=== PATIENT | female | born 1985 | race Two or more races ===

== ENCOUNTER 2022-10-13 10:11 | Emergency (ER) | payer OTHER ==
[~2022-10-13] VITALS: Ht 154.9 cm; Wt 140.0 kg
[2022-10-13 10:15] VITALS: BP 146/75
[2022-10-13 10:52] LABS: COVID AG,FIA SOURCE NASAL SWAB
[2022-10-13] MEDS ORDERED: PSEUDOEPHEDRINE HCL 30 MG TABLET PO ONE (11:15)
[2022-10-13] MEDS ORDERED: ACETAMINOPHEN 500 MG TABLET PO ONE (11:15)
[2022-10-13 11:18] LABS: INFLUENZA TYPE A NEGATIVE FOR TYPE A (NEGATIVE); INFLUENZA TYPE B POSITIVE FOR TYPE B (NEGATIVE)
[2022-10-13] MEDS ORDERED: IBUP-1554 PO (11:45)
[2022-10-13] MEDS ORDERED: GUAIFDM PO (11:45)
[2022-10-13] MEDS ORDERED: HYDR-4723 PO (11:45)
[2022-10-13] MEDS ORDERED: PSEU-191 PO (11:45)
== END 2022-10-13 12:04 | disposition still patient (30) ==
LOC: EMS 10:14
DX: J40 Bronchitis, not specified as acute or chronic (principal); J06.9 Acute upper respiratory infection, unspecified; J10.1 Influenza due to other identified influenza virus with other respiratory manifestations; Z20.822 Contact with and (suspected) exposure to COVID-19
CPT/HCPCS: 87804; 99283

== ENCOUNTER 2023-02-20 17:48 | Emergency (ER) | payer OTHER ==
[~2023-02-20] VITALS: Ht 154.9 cm; Wt 59.1 kg
[~2023-02-20 17:48] MED LIST: GUAIFDM PO; HYDR-4723 PO; IBUP-1554 PO; PSEU-191 PO
[2023-02-20] MEDS ORDERED: METOCLOPRAMIDE HCL 10 MG TABLET PO ONE (19:00)
[2023-02-20 19:09] LABS: BASOPHILS % (AUTO) 0.4 % (0.0-2.0); HEMATOCRIT 36.7 % (36-46); LYMPHOCYTES # (AUTO) 2.5 K/uL (1.0-4.8); MEAN CORPUSCULAR HEMOGLOBIN 31.9 pg (26.0-34.0); MEAN CORPUSCULAR HGB CONC 32.7 G/dL (31.0-37.0); MEAN CORPUSCULAR VOLUME 98 fL (80-100); MONOCYTES # (AUTO) 0.8 K/uL (0.1-1.0); MONOCYTES % (AUTO) 9.3 % (2.0-9.0); NEUTROPHILS # (AUTO) 5.7 K/uL (1.8-7.7); NEUTROPHILS % (AUTO) 62.3 % (40.0-70.0); PLATELET COUNT (AUTO) 357 K/uL (150-450); RED BLOOD CELL COUNT(AUTO) 3.76 MIL/uL (4.00-5.20); RED CELL DISTRIBUTION WIDTH 14.2 % (11.5-14.5)
[2023-02-20 19:18] LABS: ANION GAP 11 mmol/L (8-16); CALCIUM, TOTAL 8.7 mg/dL (8.8-10.5); CARBON DIOXIDE 27 mmol/L (22-29); CHLORIDE 103 mmol/L (98-107); CREATININE 0.58 mg/dL (0.60-1.30); GLOMERULAR FILTR. RATE CALC > 60 mL/min (>60); GLUCOSE,RANDOM 88 mg/dL (70-110); POTASSIUM 3.6 mmol/L (3.5-5.1); SODIUM SERUM 141 mmol/L (136-145)
[2023-02-20 19:52] LABS: ALANINE AMINOTRANSFERASE 12 U/L (12-78); ALBUMIN 3.8 g/dL (3.4-5.0); ALKALINE PHOSPHATASE 44 U/L (46-116); ASPARTATE AMINOTRANSFERASE 9 U/L (15-37); BILIRUBIN,TOTAL 0.7 mg/dL (0.1-1.0); HCG,QUANTITATIVE 40507 mIU/mL (0-6); LIPASE 17 U/L (16-77); TOTAL PROTEIN, SERUM 7.2 g/dL (6.4-8.2)
[2023-02-20] MEDS ORDERED: PYRI25TA4 PO (20:16)
[2023-02-20 20:30] VITALS: BP 128/88; PULSE 80; RESP 18; TEMP 98.2
[2023-02-21] MEDS ORDERED: PYRI25TA4 PO (15:29)
== END 2023-02-20 20:31 | disposition home or self-care (01) ==
LOC: EMS 17:48
DX: O26.891 Other specified pregnancy related conditions, first trimester (principal); R11.0 Nausea; Z3A.01 Less than 8 weeks gestation of pregnancy
CPT/HCPCS: 80053; 83690; 84702; 85025; 99283

== ENCOUNTER 2023-02-27 18:10 | Emergency (ER) | payer OTHER ==
[~2023-02-27] VITALS: Ht 157.5 cm; Wt 63.6 kg
[~2023-02-27 18:10] MED LIST changes: -GUAIFDM PO; -HYDR-4723 PO; -IBUP-1554 PO; -PSEU-191 PO; +PYRI25TA4 PO
[2023-02-27 18:14] VITALS: BP 117/80; PULSE 82; RESP 18; TEMP 97.9
[2023-02-27 18:49] LABS: BASOPHILS % (AUTO) 0.3 % (0.0-2.0); HEMATOCRIT 36.6 % (36-46); LYMPHOCYTES # (AUTO) 2.7 K/uL (1.0-4.8); LYMPHOCYTES % (AUTO) 34.7 % (22.0-44.0); MEAN CORPUSCULAR HEMOGLOBIN 31.8 pg (26.0-34.0); MEAN CORPUSCULAR HGB CONC 32.8 G/dL (31.0-37.0); MEAN CORPUSCULAR VOLUME 97 fL (80-100); MONOCYTES # (AUTO) 0.7 K/uL (0.1-1.0); MONOCYTES % (AUTO) 8.6 % (2.0-9.0); NEUTROPHILS # (AUTO) 4.2 K/uL (1.8-7.7); NEUTROPHILS % (AUTO) 54.4 % (40.0-70.0); PLATELET COUNT (AUTO) 356 K/uL (150-450); RED BLOOD CELL COUNT(AUTO) 3.77 MIL/uL (4.00-5.20); RED CELL DISTRIBUTION WIDTH 14.7 % (11.5-14.5)
[2023-02-27 18:50] LABS: ANION GAP 11 mmol/L (8-16); CARBON DIOXIDE 26 mmol/L (22-29); CHLORIDE 102 mmol/L (98-107); CREATININE 0.55 mg/dL (0.60-1.30); GLOMERULAR FILTR. RATE CALC > 60 mL/min (>60); GLUCOSE,RANDOM 91 mg/dL (70-110); POTASSIUM 3.9 mmol/L (3.5-5.1); SODIUM SERUM 139 mmol/L (136-145)
[2023-02-27 19:18] LABS: ALANINE AMINOTRANSFERASE 15 U/L (12-78); ALBUMIN 3.6 g/dL (3.4-5.0); ALKALINE PHOSPHATASE 41 U/L (46-116); ASPARTATE AMINOTRANSFERASE 13 U/L (15-37); BILIRUBIN,TOTAL 0.3 mg/dL (0.1-1.0); HCG,QUANTITATIVE 100284 mIU/mL (0-6)
== END 2023-02-27 21:03 | disposition home or self-care (01) ==
LOC: EMS 18:11
DX: O09.521 Supervision of elderly multigravida, first trimester (principal); O46.91 Antepartum hemorrhage, unspecified, first trimester; Z3A.01 Less than 8 weeks gestation of pregnancy
CPT/HCPCS: 76801; 76817; 80053; 84702; 85025; 86901; 99284

== ENCOUNTER 2023-05-03 18:05 | Emergency (ER) | payer OTHER ==
[~2023-05-03] VITALS: Ht 157.5 cm; Wt 68.2 kg
[2023-05-03 18:08] VITALS: TEMP 98.5
[2023-05-03 18:42] LABS: BASOPHILS % (AUTO) 0.5 % (0.0-2.0); EOSINOPHILS % (AUTO) 1.6 % (1.0-6.0); HEMATOCRIT 31.7 % (36-46); HEMOGLOBIN 10.6 g/dL (12.0-16.0); LYMPHOCYTES # (AUTO) 2.2 K/uL (1.0-4.8); LYMPHOCYTES % (AUTO) 25.1 % (22.0-44.0); MEAN CORPUSCULAR HEMOGLOBIN 32.6 pg (26.0-34.0); MEAN CORPUSCULAR HGB CONC 33.3 G/dL (31.0-37.0); MEAN CORPUSCULAR VOLUME 98 fL (80-100); MONOCYTES # (AUTO) 0.7 K/uL (0.1-1.0); MONOCYTES % (AUTO) 7.8 % (2.0-9.0); NEUTROPHILS # (AUTO) 5.6 K/uL (1.8-7.7); PLATELET COUNT (AUTO) 372 K/uL (150-450); RED BLOOD CELL COUNT(AUTO) 3.24 MIL/uL (4.00-5.20); RED CELL DISTRIBUTION WIDTH 14.3 % (11.5-14.5); WHITE BLOOD COUNT (AUTO) 8.6 K/uL (4.5-11.0)
[2023-05-03 18:53] LABS: ANION GAP 8 mmol/L (8-16); CALCIUM, TOTAL 9.5 mg/dL (8.8-10.5); CARBON DIOXIDE 26 mmol/L (22-29); CHLORIDE 101 mmol/L (98-107); CREATININE 0.41 mg/dL (0.60-1.30); GLOMERULAR FILTR. RATE CALC > 60 mL/min (>60); GLUCOSE,RANDOM 87 mg/dL (70-110); POTASSIUM 3.8 mmol/L (3.5-5.1); SODIUM SERUM 135 mmol/L (136-145); UREA NITROGEN, BLOOD 8 mg/dL (7-18)
[2023-05-03 18:59] LABS: ALANINE AMINOTRANSFERASE 54 U/L (12-78); ALBUMIN 2.8 g/dL (3.4-5.0); ALKALINE PHOSPHATASE 50 U/L (46-116); ASPARTATE AMINOTRANSFERASE 37 U/L (15-37); BILIRUBIN,TOTAL 0.1 mg/dL (0.1-1.0); LIPASE 26 U/L (16-77)
[2023-05-03 19:40] LABS: HCG,QUANTITATIVE 28518 mIU/mL (0-6)
[2023-05-03 19:51] LABS: APPEARANCE,URINE CLEAR (CLEAR); BILIRUBIN,URINE NEGATIVE (NEGATIVE); COLOR,URINE LIGHT YELLOW (YELLOW); GLUCOSE, URINE (UA) NEGATIVE (NEGATIVE); KETONES,URINE NEGATIVE (NEGATIVE); LEUKOCYTE ESTERASE ,URINE NEGATIVE (NEGATIVE); NITRATE,URINE NEGATIVE (NEGATIVE); OCCULT BLOOD,URINE NEGATIVE (NEGATIVE); PH,URINE 5.5 (5.0-8.0); PROTEIN,URINE NEGATIVE (NEGATIVE); SPECIFIC GRAVITIY, URINE 1.021 (1.003-1.030); UROBILINOGEN,URINE <=1.0 mg/dL (<=1.0)
[2023-05-03 22:10] VITALS: BP 110/70; PULSE 76; RESP 18
== END 2023-05-03 22:11 | disposition home or self-care (01) ==
LOC: EMS 18:05
DX: O26.892 Other specified pregnancy related conditions, second trimester (principal); R10.32 Left lower quadrant pain; Z3A.16 16 weeks gestation of pregnancy
CPT/HCPCS: 76805; 80053; 81003; 83690; 84702; 85025; 99284

== ENCOUNTER 2023-05-09 17:49 | Emergency (ER) | payer OTHER ==
[~2023-05-09] VITALS: Ht 154.9 cm; Wt 67.7 kg
[2023-05-09] MEDS ORDERED: ASPI-1444 PO (17:53)
[2023-05-09] MEDS ORDERED: PREN1.4T2 PO (17:53)
[2023-05-09] MEDS ORDERED: ACET-2247 PO (17:53)
[2023-05-09 18:13] LABS: COVID AG,FIA SOURCE NASAL SWAB
[2023-05-09 18:31] LABS: SARS-COV2 (COVID) ANTIGEN,FIA Negative (Negative)
[2023-05-09 18:53] VITALS: BP 123/72; PULSE 99; RESP 16; TEMP 98.2
== END 2023-05-09 18:57 | disposition home or self-care (01) ==
LOC: EMS 17:58
DX: O26.892 Other specified pregnancy related conditions, second trimester (principal); J02.8 Acute pharyngitis due to other specified organisms; Z20.822 Contact with and (suspected) exposure to COVID-19
CPT/HCPCS: 87430; 99283

== ENCOUNTER 2023-05-10 08:31 | Emergency (ER) | payer OTHER ==
[~2023-05-10] VITALS: Ht 154.9 cm; Wt 64.1 kg
[~2023-05-10 08:31] MED LIST changes: +ACET-2247 PO; +ASPI-1444 PO; +PREN1.4T2 PO
[2023-05-10 08:33] VITALS: BP 113/58; PULSE 112; RESP 16; TEMP 98.5
[2023-05-10 09:14] LABS: INFLUENZA TYPE A NEGATIVE FOR TYPE A (NEGATIVE); INFLUENZA TYPE B NEGATIVE FOR TYPE B (NEGATIVE)
== END 2023-05-10 12:33 | disposition home or self-care (01) ==
LOC: EMS 08:44
DX: O98.512 Other viral diseases complicating pregnancy, second trimester (principal); U07.1 COVID-19; Z3A.17 17 weeks gestation of pregnancy
CPT/HCPCS: 87804; 99283

== ENCOUNTER 2024-01-11 07:16 | Emergency (ER) | payer OTHER ==
[~2024-01-11] VITALS: Ht 157.5 cm; Wt 77.3 kg
[~2024-01-11 07:16] MED LIST changes: -ASPI-1444 PO; -PYRI25TA4 PO
[2024-01-11 07:21] VITALS: TEMP 98.5
[2024-01-11] MEDS ORDERED: ACET-3385 PO (07:23)
[2024-01-11] MEDS ORDERED: PREN1TAB26 PO (07:23)
[2024-01-11 08:41] LABS: COVID AG,FIA SOURCE NASAL SWAB
[2024-01-11 08:54] LABS: RAPID GROUP A STREP NEGATIVE (NEGATIVE)
[2024-01-11 09:04] LABS: INFLUENZA TYPE A NEGATIVE FOR TYPE A (NEGATIVE); INFLUENZA TYPE B NEGATIVE FOR TYPE B (NEGATIVE); SARS-COV2 (COVID) ANTIGEN,FIA Negative (Negative)
[2024-01-11 09:15] VITALS: BP 109/66; PULSE 88; RESP 16
== END 2024-01-11 09:32 | disposition home or self-care (01) ==
LOC: EMS 07:17
DX: B34.9 Viral infection, unspecified (principal); Z20.822 Contact with and (suspected) exposure to COVID-19
CPT/HCPCS: 87430; 87804; 99283